=== PATIENT | female | born 2000 | race Caucasian/White ===

== ENCOUNTER 2020-09-14 16:41 | Emergency (ER) | payer SELFPAY ==
--- NOTE | 2020-09-14 16:57 | W.ED.OVERDOS ---
HPI - Overdose General: Chief Complaint: Overdose Stated Complaint: Overdose/AMS Time Seen by Provider: 09/14/20 16:57 History of Present Illness: HPI Narrative: 20-year-old female presents to the emergency room lethargic altered mental status. She is tracks on her arms. We were able to get her to admit to that she had shot up with heroin earlier today. She does on a regular basis. She denies any other medical problems no recent illness. Patient given 2 mg Narcan shortly after arrival immediately is awake and alert admits to use of heroin. Staff found small bags of black substance in her bra which will be turned over to security. Patient admits to using heroin today she cannot really quantify how much she used. MD complaint: accidental overdose Onset (ago): unknown Timing confirmed by: family member Review of Systems Const: Denies: fever(s), chills, body aches, change in appetite, fatigue or malaise ENMT: Denies: throat pain, ear or mastoid pain, nasal discharge or nasal congestion Card: Denies: chest pain, edema, dyspnea on exertion or orthopnea Resp: Denies: dyspnea, productive cough or non-productive cough GI: Denies: abdominal pain, nausea, vomiting, diarrhea, constipation or bloating : Denies: flank pain, difficulty voiding, dysuria, urinary frequency or urinary urgency Physical Exam HENMT: COMMON NORMALS: normocephalic, atraumatic and hearing grossly normal bilaterally HEAD & SCALP: normocephalic and atraumatic Neck/C-Spine: COMMON NORMALS: no JVD Resp: COMMON NORMALS: normal respiratory effort, No retractions, No use of accessory muscles and clear to auscultation bilaterally AUSCULTATION: clear to auscultation bilaterally Cardio: COMMON NORMALS: no JVD, regular rate, regular rhythm and No murmurs present (Cardio) RATE: regular rate RHYTHM: regular rhythm GI: COMMON NORMALS: Soft to palpation and No hepatosplenomegaly present AUSCULTATION: Yes normoactive bowel sounds PALPATION: Yes Soft to palpation, No Tenderness to palpation present (GI), No Guarding due to palpation present (GI) and Yes No hepatosplenomegaly present Extremity: COMMON NORMALS: normal to inspection, capillary refill normal, no clubbing, cyanosis or edema, no calf tenderness and no pedal edema Skin: NARRATIVE SKIN EXAM: Scarring bilateral and antecubital fossa on the forearms from previous intravenous injections Course Vital Signs: Vital signs: Vital Signs Temperature 98.2 F 09/14/20 16:58 Pulse Rate 101 H 09/14/20 18:38 Respiratory Rate 15 09/14/20 17:09 Blood Pressure 126/89 09/14/20 18:38 Pulse Oximetry 99 09/14/20 18:38 MDM - Overdose MDM Narrative: Medical decision making narrative: After Narcan administration patient to work awake alert and oriented very nauseous she is given a liter of fluids 25 of Phenergan which did help significantly she is no longer lethargic 15 minutes after the initial Narcan dose does not appear to need any more. We will monitor her for a time and then discharge her home discussed patient abstinence program she is wishing to pursue that. Lab Data: Labs: Lab Results 09/14/20 09/14/20 09/14/20 Range/Units 17:30 17:59 17:59 WBC 9.0 (4.0-10.0) 10^3/ uL RBC 4.83 (4.1-5.3) 10^6/u L Hgb 12.8 (11.5-15.3) g/dL Hct 42.1 (37.0-47.0) % MCV 87.2 (81-99) fL MCH 26.5 L (28.0-34.0) pg MCHC 30.4 (30.0-36.0) g/dL RDW 13.4 (12.1-15.1) % Plt Count 195 (130-400) 10^3/c mm MPV 9.5 (7.4-10.4) fL Neut % (Auto) 62.6 % Lymph % (Auto) 27.8 % Dickenson % (Auto) 7.1 % Eos % (Auto) 1.8 % Baso % (Auto) 0.4 % Neut # (Auto) 5.61 (1.8-7.7) 10^3/u L Lymph # (Auto) 2.5 (0.8-4.8) 10^3/u L Dickenson # (Auto) 0.6 (0.2-0.9) 10^3/u L Eos # (Auto) 0.2 (0.0-0.8) 10^3/u L Baso # (Auto) 0.0 (0.0-0.1) 10^3/u L Nucleated RBC % (a uto) 0 % Nucleated RBCs # 0.0 /100WBC Specimen Type Arterial Sample Site Radial, left ABG pH 7.35 (7.35-7.45) ABG pCO2 52.9 H (35-45) mmHg ABG pO2 82.1 (80.0-100.0) mmH g ABG HCO3 29.3 H (22-26) mmol/L ABG O2 Saturation 95.7 ABG Base Excess 2.6 H (-2.0-2.0) mmol/ L Piter Test Pos A-a O2 Gradient 0.3 L (5-10) mmHg Hematocrit 41.2 (37-47) % Hgb O2 Saturation 92.8 L (95-100) % Carboxyhemoglobin 2.7 (0.4-20.1) %THgb Methemoglobin 0.4 (0.4-1.5) % Total Hemoglobin 13.5 (12-16) g/dL Sodium 142.0 140 (131-143) mmol/L Potassium 4.7 4.1 (3.5-5.0) mmol/L Glucose 96.0 79 (70-115) mg/dL Ionized Calcium 1.2 (1.1-1.4) mmol/L O2 Delivery Device None FiO2 21.0 % Principal Systems Engineer ID glc Chloride 107 (98-107) mmol/L Carbon Dioxide 23 (22-29) mmol/L Anion Gap 14.1 (5-19) BUN 11 (6-20) mg/dL Creatinine 0.5 (0.5-0.9) mg/dL GFR Calculation 154.3 H (90-130) mL/min Calculated Osmolal ity 288 (285-295) mOsm/k g Calcium 8.3 L (8.5-10.5) mg/dL Total Bilirubin 0.2 (0.15-1.2) mg/dL AST 27 (0-32) U/L ALT 37 H (0-33) U/L Alkaline Phosphata se 86 (35-105) IU/L Creatine Kinase 100 (26-192) U/L Total Protein 6.7 (6.6-8.7) g/dL Albumin 3.5 (3.5-5.2) g/dL Globulin 3.2 (1.3-4.6) g/dL Salicylates < 0.3 L (3-10) mg/dL Acetaminophen < 5.0 L (10-30) ug/mL Discharge Plan Discharge Patient Disposition: Home Clinical Impression: Overdose of heroin Condition: Stable Prescriptions: No Action No Known Home Medications RF: 0 Discharge Orders: Discharge ED (Routine); Ordered 09/14/20 Ordered By: Negro Harmon Discharge Diet: Usual diet Discharge Activity: Resume usual activity Patient Instructions: Opioid Safety Activity Restrictions/Additional Instructions: Do not use heroin. Coding Level of Care Code ED Emr Trainer for Esther Fwd Exam Detailed
[2020-09-14 16:58] VITALS: BP 135/89; PULSE 134; RESP 26; TEMP 36.8; O2SAT 100; BMI 21.7
--- NOTE | 2020-09-14 17:03 | PC.NURSE ---
Received clear plastic baggie with possible illicit drugs from [facility] at 1657. Security notified. Passed to James (security) at 1707.
[2020-09-14] MEDS: naloxone 0.4 mg/ml SDV 2 MG IVP (17:08)
[2020-09-14 17:09] VITALS: BP 123/73; PULSE 110; RESP 15; O2SAT 100
[2020-09-14] MEDS: LORazepam 2 mg/mL INJ 1 mL 1 MG IVP (17:14)
[2020-09-14] MEDS: promethazine 25 mg/mL SDV 1 mL IM (17:17)
[2020-09-14] MEDS: sodium chloride 0.9% 1,000 ML 999 ML IV (17:22)
--- NOTE | 2020-09-14 17:23 | XRR_ITS ---
PROCEDURE INFORMATION: Exam: XR Chest Exam date and time: 09/14/2020 5:23 PM Age: 20 years old Clinical indication: Cough; Additional info: Dyspnea/cough TECHNIQUE: Imaging protocol: XR of the chest. Views: 1 view. COMPARISON: No relevant prior studies available. FINDINGS: Lungs: Unremarkable. No consolidation. Pleural spaces: Unremarkable. No pleural effusion. No pneumothorax. Heart/Mediastinum: Unremarkable. No cardiomegaly. Bones/joints: Unremarkable. XR/XR chest 1V portable [id number] IMPRESSION: No acute findings.
[2020-09-14 17:48] LABS: ABG PCO2 52.9 mmHg (35-45); ABG PH Result 7.35 (7.35-7.45); Alveolar-Arterial Oxygen Gradi 0.3 mmHg (5-10); Arterial Blood Gas Hematocrit 41.2 % (37-47); Base Excess ABG 2.6 mmol/L (-2.0-2.0); Blood Gas Allen Test Pos; Blood Gas Operator Identificat glc; Blood Gas Sample Site Radial, left; Blood Gas Sample Type Arterial; Carboxyhemoglobin 2.7 %THgb (0.4-20.1); HCO3 ABG 29.3 mmol/L (22-26); HGB O2 Sat 92.8 % (95-100); Ionized Calcium Level - ABG 1.2 mmol/L (1.1-1.4); Methemoglobin 0.4 % (0.4-1.5); Oxygen Saturation ABG 95.7; PO2 ABG 82.1 mmHg (80.0-100.0); Potassium Level - ABG 4.7 mmol/L (3.5-5.0); Total Hemoglobin 13.5 g/dL (12-16)
[2020-09-14 18:05] LABS: Basophils % 0.4 %; Eosinophils # 0.2 10^3/uL (0.0-0.8); Eosinophils % 1.8 %; Hematocrit 42.1 % (37.0-47.0); Hemoglobin 12.8 g/dL (11.5-15.3); Lymphocytes # 2.5 10^3/uL (0.8-4.8); Lymphocytes % 27.8 %; Mean Corpuscular HGB Conc 30.4 g/dL (30.0-36.0); Mean Corpuscular Hemoglobin 26.5 pg (28.0-34.0); Mean Corpuscular Volume 87.2 fL (81-99); Mean Platelet Volume 9.5 fL (7.4-10.4); Monocytes # 0.6 10^3/uL (0.2-0.9); Monocytes % 7.1 %; Neutrophils # 5.61 10^3/uL (1.8-7.7); Neutrophils % 62.6 %; Nucleated Red Blood Cells % 0 %; Platelet Count 195 10^3/cmm (130-400); Red Blood Count 4.83 10^6/uL (4.1-5.3); Red Cell Distribution Width 13.4 % (12.1-15.1)
--- NOTE | 2020-09-14 18:12 | PC.RESP ---
Pt arrived to ER with stated IV drug use. Nurses in room removed pt clothing due to pt having wet clothes. A small ziploc bag of black substance was found in patients bra. At 1657 this RT handed off the bag to Sohan BANEGAS who contacted security.
[2020-09-14 18:31] LABS: Alanine Aminotransferase 37 U/L (0-33); Albumin Level 3.5 g/dL (3.5-5.2); Alkaline Phosphatase 86 IU/L (35-105); Anion Gap 14.1 (5-19); Aspartate Amino Transferase 27 U/L (0-32); Blood Urea Nitrogen 11 mg/dL (6-20); Calcium 8.3 mg/dL (8.5-10.5); Carbon Dioxide 23 mmol/L (22-29); Chloride 107 mmol/L (98-107); Creatine Phosphokinase 100 U/L (26-192); Globulin 3.2 g/dL (1.3-4.6); Glomerular Filtration Rate 154.3 mL/min (90-130); Glucose 79 mg/dL (65-115); Osmolality Calculated 288 mOsm/kg (285-295); Potassium 4.1 mmol/L (3.5-5.1); Sodium 140 mmol/L (136-145); Total Bilirubin 0.2 mg/dL (0.15-1.2); Total Protein 6.7 g/dL (6.6-8.7)
[2020-09-14 18:33] LABS: Acetaminophen < 5.0 ug/mL (10-30); Salicylate < 0.3 mg/dL (3-10)
[2020-09-14 18:38] VITALS: BP 126/89; PULSE 101; O2SAT 99
== END 2020-09-14 18:40 | disposition home or self-care (01) ==
PROVIDERS: Emergency Provider Family Medicine
DX: T40.1X1A Poisoning by heroin, accidental (unintentional), initial encounter (principal)
CPT/HCPCS: 36415; 36600; 71045; 80051; 80053; 80307; 82330; 82550; 82805; 85025; 87040; 96361; 96372; 96374; 96375; 99284; J2060; J2310; J2550; J7030